=== PATIENT | female | born 1975 | race African-American/Black ===

== ENCOUNTER 2019-06-30 09:15 | Emergency (ER) | payer OTHER ==
[2019-06-30 09:28] VITALS: BP 117/71; PULSE 75; TEMP 98.3; BMI 40.8
[2019-06-30] MEDS ORDERED: IBUPROFEN 400 MG TABLET (FP) PO ONE ×2 (09:42→09:44)
--- NOTE | 2019-06-30 09:46 | PDOC ---
History of Present Illness - General Chief Complaint: Injury Stated Complaint: RT ANKLE HURT Time Seen by Provider: 06/30/19 09:35 History Source: Patient Exam Limitations: No Limitations Past History - Travel Traveled outside of the country in the last 30 days: No Close contact w/someone who was outside of country & ill: No - Past Medical History Allergies/Adverse Reactions: Allergies Allergy/AdvReac Type Severity Reaction Status Date / Time No Known Allergies Allergy Verified 06/30/19 09:19 Home Medications: Ambulatory Orders NK [No Known Home Medication] 06/30/19 - Psycho Social/Smoking Cessation Hx Smoking History: Former smoker Have you smoked in the past 12 months: No If you are a former smoker, when did you quit?: 2013 Information on smoking cessation initiated: No Drug/Substance Use Hx: No Review of Systems - Review of Systems Able to Perform ROS?: Yes Comments:: 06/30/19 09:44 CONSTITUTIONAL: Absent: fever, chills, diaphoresis, generalized weakness, malaise, loss of appetite MUSCULOSKELETAL: Present: R ankle pain Absent: myalgia, arthralgia, joint swelling SKIN: Absent: rash, itching, pallor HEMATOLOGIC/IMMUNOLOGIC: Absent: easy bleeding, easy bruising, lymphadenopathy, frequent infections ENDOCRINE: Absent: unexplained weight gain, unexplained weight loss, heat intolerance, cold intolerance NEUROLOGIC: Absent: headache, focal weakness or paresthesias, dizziness, unsteady gait, seizure, mental status changes, bladder or bowel incontinence PSYCHIATRIC: Absent: anxiety, depression, suicidal or homicidal ideation, hallucinations. Is the patient limited Mexican proficient: No *Physical Exam - Vital Signs Last Vital Signs Temp Pulse Resp BP Pulse Ox 98.3 F 75 18 117/71 99 06/30/19 09:20 06/30/19 09:20 06/30/19 09:20 06/30/19 09:20 06/30/19 09:20 - Physical Exam Comments: 06/30/19 09:44 GENERAL: Well developed, well nourished. Awake and alert. No acute distress. MUSCULOSKELETAL Swelling noted to the lateral malleolus with associated tenderness of the right ankle. Decreased range of motion in the ankle due to pain. Strength is 5 out of 5 in the lower extremities. Normal range of motion at all joints. . No CVA tenderness. EXTREMITIES: No cyanosis. No clubbing. No edema. No calf tenderness. SKIN: Warm and dry. Normal capillary refill. No rashes. No jaundice. NEUROLOGICAL: Alert, awake, appropriate. Cranial nerves 2-12 intact. No deficits to light touch and temperature in face, upper extremities and lower extremities. No motor deficits in the in face, upper extremities and lower extremities. Normoreflexic in the upper and lower extremities. Normal speech. Toes are down- going bilaterally. Gait is normal without ataxia. PSYCHIATRIC: Cooperative. Good eye contact. Appropriate mood and affect. Medical Decision Making - Medical Decision Making 06/30/19 09:45 The patient is a 44-year-old female who presents the ER today with right ankle pain status post mechanical slip and fall while walking into work. She notes that she was in the employee parking lot and fell and [place] twisting her right ankle. She denies hitting her head or losing consciousness. She states she has some swelling to the lateral aspect of her right ankle and it hurts to walk. Denies fevers, chills, head trauma, loss of consciousness, numbness and tingling and weakness the affected extremity. A/P: Right ankle injury Swelling and pain over the right lateral malleolus X-ray obtained. No obvious pathology as read by myself. Waiting for official read. 06/30/19 10:16 X-ray read by Dr. Solis. No acute pathology of the ankle or foot. There is an accessory ossicle of the right lateral malleolus. Pancho wrap applied. Discharge home with orthopedic follow-up and symptomatic relief. I discussed the physical exam findings, ancillary test results and final diagnoses with the patient. I answered all of the patient's questions. The patient was satisfied with the care received and felt comfortable with the discharge plan and treatment plan. The Patient agrees to follow up with the primary care physician/specialist within 24-72 hours. Return precautions were given. Discharge - Discharge Information Problems reviewed: Yes Clinical Impression/Diagnosis: Ankle sprain Qualifiers: Encounter type: initial encounter Involved ligament of ankle: unspecified ligament Laterality: right Qualified Code(s): S93.401A - Sprain of unspecified ligament of right ankle, initial encounter Condition: Stable Disposition: HOME - Admission No - Follow up/Referral Referrals: Franco Abbott [Primary Care Provider] - Tevin Montano MD [Staff Physician] - - Patient Discharge Instructions Patient Printed Discharge Instructions: DI for Ankle Sprain Additional Instructions: You sprained your ankle. Your x-ray was negative for broken bones. Please keep your ankle elevated while at rest above the level of your heart to reduce swelling. You may take Motrin 600 mg every 6 hours to help reduce pain and swelling. Please ice the area for 20 minute intervals at least 5 times a day to help reduce swelling. Please wear the Pancho wrap. Please follow-up with orthopedics in 1 week if your symptoms are not improving. Return to the emergency department if you have worsening pain, or unable to walk , numbness and tingling of the foot, or had any changes in her symptoms. - Post Discharge Activity Work/Back to School Note: Back to Work
== END 2019-06-30 10:20 | disposition home or self-care (01) ==
LOC: JERFT 09:15
DX: S93.401A Sprain of unspecified ligament of right ankle, initial encounter (principal); W18.39XA Other fall on same level, initial encounter; Y93.01 Activity, walking, marching and hiking; Y92.238 Other place in hospital as the place of occurrence of the external cause; Y99.0 Civilian activity done for income or pay; Z87.891 Personal history of nicotine dependence
CPT/HCPCS: 73610-TC-RT-FY; 73630-TC-RT-FY; 99282-25

== ENCOUNTER 2020-05-04 14:22 | Emergency (ER) | payer OTHER ==
[2020-05-04 14:35] VITALS: BMI 37.9
[2020-05-04] MEDS ORDERED: ASPIRIN 81 MG CHEWABLE TABLETS PO ONE (15:03)
--- NOTE | 2020-05-04 15:16 | PDOC ---
History of Present Illness - General Chief Complaint: Chest Pain Stated Complaint: CHEST PAIN Time Seen by Provider: 05/04/20 14:47 History Source: Patient Exam Limitations: No Limitations - History of Present Illness Initial Comments: 05/04/20 15:09 HISTORY OF PRESENT ILLNESS: 45-year-old woman past medical history of obesity, hyperlipidemia, COVID-19 infection November 2019 who presents emergency department for evaluation of pleuritic chest pain over the past 7 days. Patient reports the pain worsens with deep inspiration and improvement while laying down. Patient reports she occasionally feels a change in her heartbeat with inspiration. She denies any shortness of breath, cough, fevers, chills, dizziness, blurry vision. No recent travel or sick contacts. PAST MEDICAL HISTORY: COVID-19 (11/27), hyperlipidemia, obesity SURGICAL HISTORY: Denies ALLERGIES: No known drug allergies REVIEW OF SYSTEMS General/Constitutional: Denies fever or chills. Denies weakness, weight change. HEENT: Denies change in vision. Denies ear pain or discharge. Denies sore throat. Cardiovascular: See HPI Respiratory: Denies cough, wheezing, or hemoptysis. Gastrointestinal: Denies nausea, vomiting, diarrhea or constipation. Denies rectal bleeding. Genitourinary: Denies dysuria, frequency, or change in urination. Musculoskeletal: Denies joint or muscle swelling or pain. Denies neck or back pain. Skin and breasts: Denies rash or easy bruising. Neurologic: Denies headache, vertigo, loss of consciousness, or loss of sensation. Psychiatric: Denies depression or anxiety. Endocrine: Denies increased thirst. Denies abnormal weight change. Hematologic/Lymphatic: Denies anemia, easy bleeding, or history of blood clots. Allergic/Immunologic: Denies hives or skin allergy. Denies latex allergy. PHYSICAL EXAM General Appearance: Well-appearing, appropriately dressed. No apparent dis tress, no intoxication. HEENT: EOMI, PERRLA, normal ENT inspection, normal voice, TMs normal, pharynx normal. No conjunctival pallor. No photophobia, scleral icterus. Neck: Supple. Trachea midline. No tenderness, rigidity, carotid bruit, stridor, lymphadenopathy, or thyromegaly. Respiratory/Chest: Lungs CTAB. No shortness of breath, chest tenderness, respiratory distress, accessory muscle use. No crackles, rales, rhonchi, stridor, wheezing, dullness Cardiovascular: RRR. S1, S2. No JVD, murmur, bradycardia, tachycardia. Occasional skipped beats present upon auscultation. Gastrointestinal/Abdominal: Normal bowel sounds. Abdomen soft, non-distended. No tenderness or rebound tenderness. No organomegaly, pulsatile mass, guarding, hernia, hepatomegaly, splenomegaly. Past History - Medical History Allergies/Adverse Reactions: Allergies Allergy/AdvReac Type Severity Reaction Status Date / Time No Known Allergies Allergy Verified 06/30/19 09:19 Home Medications: Ambulatory Orders NK [No Known Home Medication] 06/30/19 COPD: No - Reproductive History Is Patient Now?: No - Psycho-Social/Smoking History Smoking History: Never smoked Have you smoked in the past 12 months: No If you are a former smoker, when did you quit?: 2013 - Substance Abuse Hx (Audit-C & DAST Scrn) How often the patient has a drink containing alcohol: Never Score: In Men: 4 or > Positive; In Women: 3 or > Positive: 0 Screen Result (Pos requires Nsg. Audit-10AR): Negative In the last yr the pt used illegal drug/Rx for NonMed reason: No Score: Yes response is considered Positive: 0 Screen Result (Positive result requires Nsg. DAST-10): Negative *Physical Exam - Vital Signs Last Vital Signs Temp Pulse Resp BP Pulse Ox 97.8 F 64 16 132/73 100 05/04/20 14:30 05/04/20 14:30 05/04/20 14:30 05/04/20 14:30 05/04/20 14:30 ED Treatment Course - LABORATORY CBC & Chemistry Diagram: 05/04/20 15:30 05/04/20 15:30 - ADDITIONAL ORDERS Additional order review: Laboratory Results 05/04/20 05/04/20 05/04/20 15:30 15:30 15:30 PT with INR 10.70 INR 0.91 PTT (Actin FS) 36.0 D-Dimer 365 Sodium 139 Potassium 3.6 Chloride 106 Carbon Dioxide 29 Anion Gap 5 L BUN 7.1 Creatinine 0.7 Est GFR (CKD-EPI)AfAm 120.43 Est GFR (CKD-EPI)NonAf 103.90 Random Glucose 79 Calcium 9.0 Magnesium 2.4 Total Bilirubin 0.2 AST 11 L ALT 14 Alkaline Phosphatase 75 Creatine Kinase 86 Troponin I < 0.02 Total Protein 8.7 H Albumin 4.5 Urine Color Urine Appearance Urine pH Ur Specific [place] Urine Protein Urine Glucose (UA) Urine Ketones Urine Blood Urine Nitrite Urine Bilirubin Urine Urobilinogen Ur Leukocyte Esterase Urine WBC (Auto) Urine RBC (Auto) Urine Casts (Auto) U Epithel Cells (Auto) Urine Bacteria (Auto) Urine HCG, Qual 05/04/20 15:25 PT with INR INR PTT (Actin FS) D-Dimer Sodium Potassium Chloride Carbon Dioxide Anion Gap BUN Creatinine Est GFR (CKD-EPI)AfAm Est GFR (CKD-EPI)NonAf Random Glucose Calcium Magnesium Total Bilirubin AST ALT Alkaline Phosphatase Creatine Kinase Troponin I Total Protein Albumin Urine Color Yellow Urine Appearance Clear Urine pH 7.0 D Ur Specific [place] 1.019 Urine Protein Negative Urine Glucose (UA) Negative Urine Ketones Negative Urine Blood 1+ H Urine Nitrite Negative Urine Bilirubin Negative Urine Urobilinogen 0.2 Ur Leukocyte Esterase Negative Urine WBC (Auto) 1 Urine RBC (Auto) 103 Urine Casts (Auto) 1 U Epithel Cells (Auto) 5 Urine Bacteria (Auto) 194 Urine HCG, Qual Negative 05/04/20 15:30 RBC 4.68 MCV 77.2 L MCHC 31.9 L RDW 17.3 H MPV 7.6 Neutrophils % 46.5 Lymphocytes % 43.4 H Monocytes % 6.4 Eosinophils % 1.8 Basophils % 1.9 - RADIOLOGY Radiology Studies Ordered: Category Date Time Status CHEST PA & LAT [RAD] Stat Radiology 05/04/20 15:03 Completed - Medications Given in the ED: ED Medications Discontinued Medications Generic Name Dose Route Start Last Admin Trade Name Freq PRN Reason Stop Dose Admin Aspirin 162 mg 05/04/20 15:03 05/04/20 15:20 Asa - PO 05/04/20 15:04 162 mg ONCE ONE Administration Medical Decision Making - Medical Decision Making 05/04/20 15:16 A/P: 45-year-old woman with pleuritic chest pain for 7 days Occasional skipped beats noted on auscultation otherwise physical exam is unremarkable Labs including cardiac profile and d-dimer Urinalysis, urine Chest x-ray EKG COVID-19 testing Reassess 05/04/20 17:04 Laboratory Tests 05/04/20 05/04/20 05/04/20 15:25 15:25 15:30 WBC 5.8 RBC 4.68 Hgb 11.5 Hct 36.1 MCV 77.2 L MCH 24.6 L MCHC 31.9 L RDW 17.3 H Plt Count 391 MPV 7.6 Absolute Neuts (auto) 2.7 Neutrophils % 46.5 Lymphocytes % 43.4 H Monocytes % 6.4 Eosinophils % 1.8 Basophils % 1.9 Nucleated RBC % 0 PT with INR INR PTT (Actin FS) D-Dimer Sodium Potassium Chloride Carbon Dioxide Anion Gap BUN Creatinine Est GFR (CKD-EPI)AfAm Est GFR (CKD-EPI)NonAf Random Glucose Calcium Magnesium Total Bilirubin AST ALT Alkaline Phosphatase Creatine Kinase Troponin I Total Protein Albumin Urine Color Yellow Urine Appearance Clear Urine pH 7.0 D Ur Specific [place] 1.019 Urine Protein Negative Urine Glucose (UA) Negative Urine Ketones Negative Urine Blood 1+ H Urine Nitrite Negative Urine Bilirubin Negative Urine Urobilinogen 0.2 Ur Leukocyte Esterase Negative Urine WBC (Auto) 1 Urine RBC (Auto) 103 Urine Casts (Auto) 1 U Epithel Cells (Auto) 5 Urine Bacteria (Auto) 194 Urine HCG, Qual Negative COVID-19 ([facility]IM) Pending 05/04/20 05/04/20 05/04/20 15:30 15:30 15:30 WBC RBC Hgb Hct MCV MCH MCHC RDW Plt Count MPV Absolute Neuts (auto) Neutrophils % Lymphocytes % Monocytes % Eosinophils % Basophils % Nucleated RBC % PT with INR 10.70 INR 0.91 PTT (Actin FS) 36.0 D-Dimer 365 Sodium 139 Potassium 3.6 Chloride 106 Carbon Dioxide 29 Anion Gap 5 L BUN 7.1 Creatinine 0.7 Est GFR (CKD-EPI)AfAm 120.43 Est GFR (CKD-EPI)NonAf 103.90 Random Glucose 79 Calcium 9.0 Magnesium 2.4 Total Bilirubin 0.2 AST 11 L ALT 14 Alkaline Phosphatase 75 Creatine Kinase 86 Troponin I < 0.02 Total Protein 8.7 H Albumin 4.5 Urine Color Urine Appearance Urine pH Ur Specific [place] Urine Protein Urine Glucose (UA) Urine Ketones Urine Blood Urine Nitrite Urine Bilirubin Urine Urobilinogen Ur Leukocyte Esterase Urine WBC (Auto) Urine RBC (Auto) Urine Casts (Auto) U Epithel Cells (Auto) Urine Bacteria (Auto) Urine HCG, Qual COVID-19 ([facility]KSIM) Chest x-ray as read by Dr. Solis and reviewed by me: No acute chest pathology noted. No significant change from study performed 12/27. EKG sinus rhythm with rate of 62. Normal intervals present. Normal axis. No ischemic changes present. Symptoms are likely due from previous COVID-19 infection but will refer for cardiology evaluation as an outpatient. I discussed the physical exam findings, ancillary test results and final diagnoses with the patient. I answered all of the patient's questions. The patient was satisfied with the care received and felt comfortable with the discharge plan and treatment plan. The patient will call their primary care physician within 24 hours to arrange follow-up and will return to the Emergency Department with any new, persistent or worsening symptoms. Portions of this note have been documented using voice recognition software. As a result, errors may occur in the bit setter process. Effort has been made to correct all grammatical and bit setter error, but some may have been missed which may produce sporadic inaccurate bit setter or nonsensical phrases. Discharge - Discharge Information Problems reviewed: Yes Clinical Impression/Diagnosis: Chest pain Qualifiers: Chest pain type: chest pain on breathing Qualified Code(s): R07.1 - Chest pain on breathing; R07.81 - Pleurodynia Condition: Fair Disposition: HOME - Admission No - Follow up/Referral Referrals: Franco Abbott [Primary Care Provider] - Pete Dodd MD [Staff Physician] - - Patient Discharge Instructions Additional Instructions: Your EKG and chest x-ray today were unremarkable There were no significant abnormalities in your blood tests. Your COVID-19 testing will take 24 to 48 hours to get a result. You should not work until you had results of your COVID-19 testing. 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 Call to schedule an appointment for reevaluation. Return to the emergency department for any new or worsening symptoms. Thank you very much for choosing us to provide your emergent healthcare needs. - Post Discharge Activity Work/Back to School Note: Back to Work
[2020-05-04] MEDS ORDERED: ASPIRIN 81 MG CHEWABLE TABLETS ONE (15:19)
[2020-05-04 16:03] LABS: BASO % 1.9 % (0-2.0); EOS % 1.8 % (0-4.5); HEMATOCRIT 36.1 % (32.4-45.2); HEMOGLOBIN 11.5 GM/dL (10.7-15.3); LYMPH % 43.4 % (8-40); MCH 24.6 pg (25.7-33.7); MCHC 31.9 g/dl (32.0-36.0); MEAN CELL VOLUME 77.2 fl (80-96); MEAN PLT VOLUME 7.6 fl (7.5-11.1); MONO % 6.4 % (3.8-10.2); NEUT % 46.5 % (42.8-82.8); PLATELET COUNT 391 K/MM3 (134-434); RBC 4.68 M/mm3 (3.60-5.2); RDW 17.3 % (11.6-15.6); WHITE BLOOD COUNT 5.8 K/mm3 (4.0-10.0)
[2020-05-04 16:12] LABS: INR 0.91 (0.83-1.09); PROTHROMBIN TIME (PATIENT) 10.7 SEC (9.7-13.0)
[2020-05-04 16:24] LABS: HCG,QUALITATIVE URINE Negative
[2020-05-04 16:28] LABS: EPI CELLS 5 /uL (0-25.1); HYALINE CASTS 1 /uL (0-3.1); URINE APPEARANCE CLEAR; URINE BACTERIA 194 /uL (0-1359); URINE BILIRUBIN NEGATIVE (NEGATIVE); URINE COLOR YELLOW; URINE GLUCOSE (UA) NEGATIVE (NEGATIVE); URINE KETONE NEGATIVE (NEGATIVE); URINE LEUK ESTERASE NEGATIVE (NEGATIVE); URINE NITRITE NEGATIVE (NEGATIVE); URINE PROTEIN NEGATIVE (NEGATIVE); URINE RBC 103 /uL (0-23.9); URINE UROBILINOGEN 0.2 mg/dL (0.2-1.0); URINE WBC 1 /uL (0-25.8)
[2020-05-04 16:38] LABS: ALBUMIN 4.5 g/dl (3.4-5.0); ALK PHOS 75 U/L (45-117); ANION GAP 5 MMOL/L (8-16); BILIRUBIN,TOTAL 0.2 mg/dL (0.2-1); BLOOD UREA NITROGEN 7.1 mg/dL (7-18); CHLORIDE 106 mmol/L (98-107); CO2 29 mmol/L (21-32); CREATININE 0.7 mg/dL (0.55-1.3); GLUCOSE,RANDOM 79 mg/dL (74-106); MAGNESIUM 2.4 mg/dL (1.8-2.4); POTASSIUM 3.6 mmol/L (3.5-5.1); SGOT/AST 11 U/L (15-37); SGPT/ALT 14 U/L (13-61); SODIUM 139 mmol/L (136-145); TOT PROT 8.7 g/dl (6.4-8.2)
[2020-05-04 17:34] VITALS: BP 128/71; PULSE 65; TEMP 97.9
--- NOTE | 2020-05-05 16:13 | EKG ---
Test Reason : Blood Pressure : / mmHG Vent. Rate : 062 BPM Atrial Rate : 062 BPM P-R Int : 156 ms QRS Dur : 072 ms QT Int : 408 ms P-R-T Axes : 054 053 033 degrees QTc Int : 414 ms NORMAL SINUS RHYTHM NORMAL ECG NO PREVIOUS ECGS AVAILABLE Confirmed by MD Jamie, Alfredo ([id number]) on 05/05/2020 4:12:54 PM Referred By: Confirmed By:Alfredo Ayala MD
== END 2020-05-04 17:35 | disposition home or self-care (01) ==
LOC: JER 14:22
DX: R07.1 Chest pain on breathing (principal)
CPT/HCPCS: 36415; 71046-TC-FY; 80053; 81003; 82550; 83735; 84484; 84703; 85025; 85379; 85610; 85730; 93005; 93010; 99284-25; U0003

== ENCOUNTER 2023-02-24 12:58 | Emergency (ER) | payer OTHER ==
[2023-02-24 13:18] VITALS: BP 115/70; PULSE 69; RESP 18; TEMP 98; BMI 29.9
[2023-02-24] MEDS ORDERED: ALBUTEROL SO4 2.5/IPRATROPIUM 0.5 INH SOL 3 ML VIAL.NEB. NEB ONE ×2 (13:23→13:29)
[2023-02-24] MEDS ORDERED: predniSONE 20 MG TABLET (UD) ONE (13:29)
[2023-02-24] MEDS ORDERED: predniSONE 20 MG TABLET (UD) PO ONE (13:30)
== END 2023-02-24 14:29 | disposition home or self-care (01) ==
LOC: FER 12:58
PROC: 3E0F7GC Introduction of Other Therapeutic Substance into Respiratory Tract, Via Natural or Artificial Opening (ICD-10-PCS; principal; 2023-02-24)
DX: R06.02 Shortness of breath (principal); R05.9 Cough, unspecified; J45.21 Mild intermittent asthma with (acute) exacerbation
CPT/HCPCS: 99283-25

== ENCOUNTER 2023-09-08 06:36 | Emergency (ER) | payer OTHER ==
[2023-09-08 06:44] VITALS: BP 125/81; PULSE 74; RESP 18; TEMP 98.2; BMI 29.9
[2023-09-08] MEDS ORDERED: IBUPROFEN 600 MG TABLET (FP) PO ONE ×2 (07:32→07:38)
== END 2023-09-08 09:23 | disposition home or self-care (01) ==
LOC: JER 06:36
DX: S46.911A Strain of unspecified muscle, fascia and tendon at shoulder and upper arm level, right arm, initial encounter (principal); M25.511 Pain in right shoulder; V87.7XXA Person injured in collision between other specified motor vehicles (traffic), initial encounter; Y93.I9 Activity, other involving external motion; Y92.410 Unspecified street and highway as the place of occurrence of the external cause
CPT/HCPCS: 73030-TC-RT-FY; 84703; 99284-25